=== PATIENT | male | born 1985 | race Caucasian/White ===

== ENCOUNTER → 2020-09-03 | Outpatient (CLI) | payer BC ==
--- NOTE | 2020-09-03 16:34 | KCIC ---
INDICATION: Reason: R06.00 / Spl. Instructions: Follow up cxr for COVID 06/2020. Continued shortness of air. / History: COMPARISON: None. FINDINGS: 3 views of the chest obtained. No focal airspace consolidation. Cardiomediastinal contour unremarkable. No acute osseous abnormality. IMPRESSION: * No focal airspace consolidation or edema. Electronically signed by: Evan Munoz MD (09/03/2020 4:31 PM) [id number]
== END ==
LOC: EDSEX 10:59 → KCIC 10:59
PROVIDERS: ATTEND Family Medicine
DX: R06.00 Dyspnea, unspecified (principal)
CPT/HCPCS: 71046